=== PATIENT | female | born 1955 | race Caucasian/White ===

== ENCOUNTER → 2020-02-08 10:46 | Outpatient (BNVA) | payer OTHER, SELFPAY | PROVIDERS: PCP Internal Medicine; Referring Provider Internal Medicine; Visit Provider Internal Medicine | DX: Z76.89 Persons encountering health services in other specified circumstances (principal) ==

== ENCOUNTER → 2020-06-13 09:39 | Outpatient (BNVA) | payer OTHER, SELFPAY | PROVIDERS: PCP Internal Medicine; Visit Provider Internal Medicine | DX: J44.9 Chronic obstructive pulmonary disease, unspecified (principal); R09.02 Hypoxemia; Z87.891 Personal history of nicotine dependence; Z79.899 Other long term (current) drug therapy | CPT/HCPCS: 99212 ==

== ENCOUNTER 2020-09-05 09:38 | Outpatient (REF) | payer MEDICARE, SELFPAY ==
[2020-09-05 10:25] LABS: MANUAL DIFF FLAG NO
[2020-09-05 10:30] LABS: Basophils Percent Auto 0.4 % (0-2); Eosinophils Absolute Auto 0.1 X10*3/uL (0.0-0.4); Eosinophils Percent Auto 1.1 % (0-4); Hematocrit 41.6 % (37-47); Hemoglobin 12.8 g/dl (12.0-16.0); Imm Gran Abs Auto 0.02 X10*3/uL (0.00-0.03); Imm Gran Pct Auto 0.2 % (0.0-0.4); Lymphocytes Absolute Auto 1.2 X10*3/uL (1.2-4.9); Mean Corpuscular HGB Conc 30.8 g/dl (31.0-35.0); Mean Corpuscular Volume 94.1 fL (80-98); Mean Platelet Volume 8.8 fL (9.4-12.3); Monocytes Absolute Auto 0.4 X10*3/uL (0.1-1.2); Neutrophils Absolute Auto 6.7 X10*3/uL (2.0-8.3); Neutrophils Percent Auto 79.3 % (45-73); Platelet Count 269 X10*3/uL (160-400); Red Blood Count 4.42 X10*6/uL (4.20-5.50); Red Cell Distribution Width 12.5 % (11.0-16.0); White Blood Count 8.4 X10*3/uL (4.8-10.8)
[2020-09-05 11:33] LABS: Glucose Urine UA NEG (NEG); Leukocyte Esterase Urine NEG (NEG); Nitrite Urine NEG (NEG); Specific Gravity - Urine >= 1.030 (1.005-1.025); Urine Blood NEG (NEG); Urine Ketones NEG (NEG); Urine Protein NEG (NEG-TRACE)
[2020-09-05 11:38] LABS: Appearance Urine HAZY; Color Urine YELLOW
[2020-09-05 11:38] LABS: Folate 7.3 ng/mL (> or = 4.0); Vitamin B12 410 pg/mL (200-900)
[2020-09-05 13:32] LABS: Alanine Aminotransferase 19 U/L (0-31); Albumin Level 4.6 g/dL (3.5-5.0); Alkaline Phosphatase 87 U/L (39-117); Anion Gap 13 (12-20); Aspartate Amino Transferase 19 U/L (5-31); Bilirubin Total 0.4 mg/dL (0.0-1.0); Blood Urea Nitrogen 13 mg/dL (9-16); Calcium 10.2 mg/dL (8.4-10.2); Carbon Dioxide 33 mmol/L (22-29); Chloride 100 mmol/L (96-108); Cholesterol 363 mg/dL; Estimated Glomerular Filt Rate 47; Glucose Fasting 117 mg/dL (60-99); HDL Cholesterol 88 mg/dL; LDL Cholesterol Calculated 245 mg/dl; Potassium 4.6 mmol/L (3.3-5.1); Sodium 141 mmol/L (135-145); Total Protein 7.1 g/dL (6.5-8.0); Triglycerides 150 mg/dL
[2020-09-05 13:50] LABS: TSH reflex Free T4 0.98 uIU/mL (0.32-4.0)
== END 2020-09-05 09:39 | disposition home or self-care (01) ==
LOC: HO.LAB 09:38
PROVIDERS: PCP Internal Medicine; Visit Provider Internal Medicine
DX: J44.9 Chronic obstructive pulmonary disease, unspecified (principal); K21.9 Gastro-esophageal reflux disease without esophagitis; R41.3 Other amnesia; E78.00 Pure hypercholesterolemia, unspecified
CPT/HCPCS: 36415; 80053; 80061; 81003; 82607; 82746; 84443; 85025

== ENCOUNTER → 2020-10-15 10:04 | Outpatient (BNVA) | payer MEDICARE, MEDICAID, SELFPAY | PROVIDERS: PCP Internal Medicine; Visit Provider Internal Medicine | DX: R05 Cough (principal); Z79.52 Long term (current) use of systemic steroids; F17.200 Nicotine dependence, unspecified, uncomplicated; Z71.6 Tobacco abuse counseling; Z99.81 Dependence on supplemental oxygen | CPT/HCPCS: 99212 ==

== ENCOUNTER → 2021-02-20 10:38 | Outpatient (BNVA) | payer MEDICARE, MEDICAID, SELFPAY | PROVIDERS: PCP Internal Medicine; Visit Provider Internal Medicine | DX: J44.9 Chronic obstructive pulmonary disease, unspecified (principal); R09.02 Hypoxemia; F17.200 Nicotine dependence, unspecified, uncomplicated | CPT/HCPCS: 99212 ==

== ENCOUNTER 2021-05-03 21:51 | Emergency (ER) | payer MEDICARE, MEDICAID, SELFPAY ==
--- NOTE | ~2021-05-03 | XR_ITS ---
EXAMINATION: XR chest 1V CLINICAL INFORMATION: Reason for Exam weakness COMPARISON: Chest radiograph 10/07/2019 TECHNIQUE: One view of the chest XR/XR chest 1V FINDINGS/IMPRESSION: Emphysema with large lung volumes with flattening of the hemidiaphragms which can be seen in the setting of COPD. No pneumothorax. No pleural effusion. Normal cardiomediastinal silhouette. Multiple remote left rib fracture deformities.
--- NOTE | ~2021-05-03 | CT_ITS ---
EXAMINATION: CT HEAD WITHOUT CONTRAST CLINICAL INFORMATION: Confusion. COMPARISON: CT head dated from 07/26/2018. TECHNIQUE: Contiguous axial imaging was performed from the skull base to vertex without intravenous administration of contrast. This CT examination was performed using dose optimization techniques as appropriate, variously including the following: *Automated exposure control *Adjustment of mA and/or kV according to patient size (this includes techniques or standardized protocols for targeted exams where dose is matched to indication/reason for exam; i.e. extremities or head) *Use of iterative reconstruction technique DLP: 583 mGy-cm FINDINGS: There is no evidence of acute intracranial hemorrhage or edematous territorial infarction. A few foci of hypoattenuation in the periventricular and deep white matter are consistent with mild microangiopathy. [place]-white matter differentiation is preserved. Proportional prominence of the ventricles and sulcal spaces. No evidence for obstructive hydrocephalus. No abnormal mass effect or midline shift. No extra-axial fluid collections. No acute soft tissue or osseous abnormalities. The mastoid air cells and paranasal sinuses are clear. CT/CT head/brain wo con IMPRESSION: No evidence of acute intracranial hemorrhage or edematous territorial infarction.
[2021-05-03 22:09] VITALS: BP 138/66; BP 158/84; PULSE 75; PULSE 76; RESP 20; TEMP 36.8; O2SAT 100; O2SAT 94; BMI 19.2
--- NOTE | 2021-05-03 22:13 | ED.AMS ---
HPI - Altered Mental Status General Chief Complaint: Dyspnea Stated Complaint: CONFUSION Time Seen by Provider: 05/03/21 22:04 Source: patient Mode of arrival: EMS Limitations: no limitations History of Present Illness HPI narrative: notes from 03/12 pulmonology state that the patient was c/o confusion during that visit as well. complaint: other (my daughter wants me to get checked out she states I was combative - EMS told RN that patient was confused x 2 weeks) Onset (ago): week(s) (2) Timing confirmed by: family member Consistency of symptoms: unknown Context: other (patient is not confused here and states she feels fine and not sure why daughter called) Associated symptoms: denies other symptoms Treatments prior to arrival: oxygen (on her baseline home O2) Related Data Home Medications Medication Instructions Recorded Confirmed albuterol sulfate 90 mcg/actuation 2 puff INHALATION Q6H PRN g 02/28/20 09/27/20 aerosol inhaler nystatin 100,000 unit/mL oral 10 ml PO BID PRN ml 02/20/21 suspension Previous Rx's Medication Instructions Recorded omeprazole 20 mg capsule,delayed 20 mg PO DAILY 90 Days #90 cap 03/31/20 release paroxetine HCl 30 mg tablet 60 mg PO DAILY #180 tab 12/01/20 atorvastatin 20 mg tablet 20 mg PO BEDTIME #90 tab 01/25/21 umeclidinium 62.5 mcg-vilanterol 1 ea PO DAILY #60 ea 01/25/21 25 mcg/actuation powdr for inhalation (Anoro Ellipta) ipratropium 0.5 mg-albuterol 3 mg 3 ml INHALATION Q6-8H PRN #90 ml 04/01/21 (2.5 mg base)/3 mL nebulization soln lorazepam 1 mg tablet 1 mg PO BID PRN 30 Days #60 tab 05/02/21 prednisone 5 mg tablet 5 mg PO DAILY #30 tab 05/02/21 tramadol 50 mg tablet 50 mg PO TID PRN 30 Days #90 tab 05/02/21 cefuroxime axetil 500 mg tablet 500 mg PO BID 7 Days #14 tab 05/04/21 Allergies Allergy/AdvReac Type Severity Reaction Status Date / Time No Known Allergies Allergy Intermediate UNKNOWN Verified 02/20/21 11:05 [NO KNOWN ALLERGIES] Review of Systems Review of Systems: Constitutional :No Fever, No Chills, No Fatigue, No Malaise ENT/Mouth : No sore throat, No Rhinorrhea Eyes: No Eye Pain, No Swelling, No Redness Cardiovascular : No Chest Pain, No SOB, No Edema, No Palpitations Respiratory : pos Cough - no change from baseline, No Sputum, No Wheezing Gastrointestinal : No Nausea, No Vomiting, No Diarrhea, No Constipation, No abdominal Pain, No Hematochezia, No Melena Genitourinary : No Dysuria, No Urinary Frequency, No Hematuria, Musculoskeletal : No joint pain, No Myalgias, No Joint Swelling Skin : No Skin Lesions, No rash Neuro : No Weakness, No Numbness, No Dizziness, No Headache Psych : No Anxiety/Panic, No Depression Heme/Lymph: No Bruising, No Bleeding,No Lymphadenopathy Endocrine : No Polyuria, No Polydipsia All other systems reviewed and are negative [facility] Past Medical History Attestation statement: The following information was validated with the patient. Medical History Anxiety COPD (chronic obstructive pulmonary disease) Elevated blood pressure reading GERD (gastroesophageal reflux disease) Hypoxemia Impaired fasting glucose Left shoulder pain Lumbar degenerative disc disease Memory impairment Pure hypercholesterolemia Smoker Vitamin D deficiency Surgical History No pertinent past surgical history Family History Family History Father CVD (cardiovascular disease) Mother Medical history unknown Other Substance abuse Social History Social History Housing: Apartment Alcohol intake: never Patient Tobacco Use Status: Current everyday Tobacco user Cigarettes Per Day: 1 Advance Directives: No Advance Directives Information Provided: No service: No Current occupational status: retired and disabled Physical Exam Vital Signs: Vital Signs: Last Vital Signs Temp 97.6 F 05/04/21 02:00 Pulse 84 05/04/21 06:17 Resp 16 05/04/21 06:17 BP 199/122 H 05/04/21 06:17 Pulse Ox 100 05/04/21 06:17 Oxygen Flow Rate 2 05/03/21 22:09 BMI result Body Mass Index 19.2 Appearance: Alert. Oriented X3. No acute distress. Eyes: Pupils equal, round and reactive to light. ENT: Pharynx normal. Neck: Normal inspection. Neck supple. CVS: Normal heart rate and rhythm. Pulses normal. Respiratory: No respiratory distress. Breath sounds diminished throughout Abdomen: Soft and non-tender. Skin: Skin warm and dry. Normal skin color. Normal skin turgor. Extremities: No lower extremity edema. No calf ttp Neuro: Oriented X 3. No motor deficit. No sensory deficit. Course Course Course Narrative: HCO3 up but VBG is at baseline and pH normal mild UTI no fevers, no confusion no back pain no WBC count can be managed as outpatient unable to get a hold of daughter, patient confused - hx of same documented in prior notes, given PRN ativan that she takes at home for anxiety, she is upset we cannot get a hold of her daughter. signed out pending ability to reach family MDM - Altered Mental Status MDM Narrative Medical decision making narrative: 65 yo female with hx of anxiety, GERD, COPD on 2L NC at home, HLD, here as her daughter reported to EMS she has been more confused x 2 weeks the patient right now is alert and oriented x 2. She is not hypoxic. She denies infectious symptoms to me. At this time will obtain labs, CXR for pneumonia, UA for UTI, CT head for stroke/ICH has no focal deficits. Dispo per results and findings. Lab Data Result diagrams: 05/03/21 22:51 05/03/21 22:51 Labs: Lab Results 05/03/21 05/03/21 05/03/21 Range/Units 22:51 22:51 22:51 WBC 6.6 (4.8-10.8) X10*3/uL RBC 4.13 L (4.20-5.50) X10*6/uL Hgb 12.2 (12.0-16.0) g/dl Hct 40.4 (37.0-47.0) % MCV 97.8 (80.0-98.0) fL MCH 29.5 (27.0-33.0) pg MCHC 30.2 L (31.0-35.0) g/dl RDW 12.5 (11.0-16.0) % Plt Count 234 (160-400) X10*3/uL MPV 9.3 L (9.4-12.3) fL Immature Gran % (Auto) 0.2 (0.0-0.4) % Neut % (Auto) 77.0 H (45-73) % Lymph % (Auto) 12.4 L (20-40) % [place] % (Auto) 9.4 (2-11) % Eos % (Auto) 0.5 (0-4) % Baso % (Auto) 0.5 (0-2) % Lymph # (Auto) 0.8 L (1.2-4.9) X10*3/uL [place] # (Auto) 0.6 (0.1-1.2) X10*3/uL Eos # (Auto) 0.0 (0.0-0.4) X10*3/uL Baso # (Auto) 0.0 (0.0-0.2) X10*3/uL Abs Immat Gran (auto) 0.01 (0.00-0.03) X10*3/uL Absolute Neuts (auto) 5.1 (2.0-8.3) x10*3/uL Absolute Nucleated RBC 0.000 (0.0-0.012) X10*3/uL Nucleated RBC % (auto) 0.0 (0.0-0.2) /100WBC VBG pH (7.32-7.43) VBG pCO2 mmHg VBG pO2 mmHg VBG HCO3 (22-26) mmol/L VBG O2 Saturation % VBG Base Excess mmol/L Sodium 142 (135-145) mmol/L Potassium 3.4 D (3.3-5.1) mmol/L Chloride 92 L (96-108) mmol/L Carbon Dioxide 41 H* D (22-29) mmol/L Anion Gap 12 (12-20) BUN 7 L (9-16) mg/dL Creatinine 0.92 (0.5-1.4) mg/dL Estim Creat Clear Calc 45.8 Estimated GFR > 60 Random Glucose 120 H (60-115) mg/dL Calcium 9.5 D (8.4-10.2) mg/dL Magnesium 1.8 (1.6-2.6) mg/dL Total Bilirubin 0.2 (0.0-1.0) mg/dL Direct Bilirubin 0.2 (0.0-0.5) mg/dL AST 15 (5-31) U/L ALT < 6 (0-31) U/L Alkaline Phosphatase 69 D (39-117) U/L Troponin I High Sens (<3.5-17.0) ng/L C-Reactive Protein 0.07 (< or = 0.50) mg/dL Total Protein 6.1 L (6.5-8.0) g/dL Albumin 3.9 (3.5-5.0) g/dL Urine Color Urine Appearance Urine pH (5.0-8.0) Ur Specific [place] (1.005-1.025) Urine Protein (NEG-TRACE) MG/DL Urine Glucose (UA) (NEG) MG/DL Urine Ketones (NEG) MG/DL Urine Blood (NEG) Urine Nitrite (NEG) Ur Leukocyte Esterase (NEG) Urine RBC (0) /HPF Urine WBC (0-4) /HPF Ur Squamous Epith Cells /LPF Ur Renal Epithelial Cell /LPF Urine Bacteria /LPF Urine Mucus /LPF COVID-19 (GINNY) Negative (Negative) COVID-19 Clin Com See Note 05/03/21 05/03/21 05/04/21 Range/Units 22:51 22:55 00:00 WBC (4.8-10.8) X10*3/uL RBC (4.20-5.50) X10*6/uL Hgb (12.0-16.0) g/dl Hct (37.0-47.0) % MCV (80.0-98.0) fL MCH (27.0-33.0) pg MCHC (31.0-35.0) g/dl RDW (11.0-16.0) % Plt Count (160-400) X10*3/uL MPV (9.4-12.3) fL Immature Gran % (Auto) (0.0-0.4) % Neut % (Auto) (45-73) % Lymph % (Auto) (20-40) % [place] % (Auto) (2-11) % Eos % (Auto) (0-4) % Baso % (Auto) (0-2) % Lymph # (Auto) (1.2-4.9) X10*3/uL [place] # (Auto) (0.1-1.2) X10*3/uL Eos # (Auto) (0.0-0.4) X10*3/uL Baso # (Auto) (0.0-0.2) X10*3/uL Abs Immat Gran (auto) (0.00-0.03) X10*3/uL Absolute Neuts (auto) (2.0-8.3) x10*3/uL Absolute Nucleated RBC (0.0-0.012) X10*3/uL Nucleated RBC % (auto) (0.0-0.2) /100WBC VBG pH 7.42 (7.32-7.43) VBG pCO2 77 mmHg VBG pO2 64 mmHg VBG HCO3 50 H (22-26) mmol/L VBG O2 Saturation 91.0 % VBG Base Excess 21.4 mmol/L Sodium (135-145) mmol/L Potassium (3.3-5.1) mmol/L Chloride (96-108) mmol/L Carbon Dioxide (22-29) mmol/L Anion Gap (12-20) BUN (9-16) mg/dL Creatinine (0.5-1.4) mg/dL Estim Creat Clear Calc Estimated GFR Random Glucose (60-115) mg/dL Calcium (8.4-10.2) mg/dL Magnesium (1.6-2.6) mg/dL Total Bilirubin (0.0-1.0) mg/dL Direct Bilirubin (0.0-0.5) mg/dL AST (5-31) U/L ALT (0-31) U/L Alkaline Phosphatase (39-117) U/L Troponin I High Sens 7.2 (<3.5-17.0) ng/L C-Reactive Protein (< or = 0.50) mg/dL Total Protein (6.5-8.0) g/dL Albumin (3.5-5.0) g/dL Urine Color YELLOW Urine Appearance CLOUDY Urine pH 6.5 (5.0-8.0) Ur Specific [place] >= 1.030 H (1.005-1.025) Urine Protein TRACE (NEG-TRACE) MG/DL Urine Glucose (UA) NEG (NEG) MG/DL Urine Ketones NEG (NEG) MG/DL Urine Blood NEG (NEG) Urine Nitrite NEG (NEG) Ur Leukocyte Esterase 1+ H (NEG) Urine RBC 0-2 (0) /HPF Urine WBC 10-14 H (0-4) /HPF Ur Squamous Epith Cells 3+ /LPF Ur Renal Epithelial Cell 2+ /LPF Urine Bacteria TRACE /LPF Urine Mucus 3+ /LPF COVID-19 ([facility]) (Negative) COVID-19 Clin Com ECG Data ECG #1: Attestation: I personally reviewed and interpreted this ECG as follows: ECG interpretation date: 05/03/21 ECG interpretation time: 22:57 Interpretation: Rate: 73 Rhythm: NSR [place]: rightward pulmonary P waves. Normal AYDE. Normal QRS complex. ST T wave : no GURDEEP, inverted anterior leads, flat t waves diffusely qTC: normal prior studies: no sig change august 2019 The study has been interpreted contemporaneously by me. . Discharge Plan Discharge Clinical Impression: Acute UTI Patient Disposition: Still a Patient Instructions: Urinary Tract Infection in Women (ED) Additional Instructions: return to ED for any worsening symptoms or concerns head CT and CXR normal Prescriptions: New cefuroxime axetil 500 mg tablet 500 mg PO BID 7 Days Qty: 14 0RF No Action omeprazole 20 mg capsule,delayed release(DR/EC) 20 mg PO DAILY 90 Days Qty: 90 12RF paroxetine HCl 30 mg tablet 60 mg PO DAILY Qty: 180 1RF atorvastatin 20 mg tablet 20 mg PO BEDTIME Qty: 90 1RF Anoro Ellipta 62.5-25 mcg/actuation blister with device 1 ea PO DAILY Qty: 60 3RF ipratropium-albuterol 0.5 mg-3 mg(2.5 mg base)/3 mL solution for nebulization 3 ml inhalation Q6-8H PRN (Reason: shortness of breath or wheezing) Qty: 90 3RF prednisone 5 mg tablet 5 mg PO DAILY Qty: 30 0RF lorazepam 1 mg tablet 1 mg PO BID PRN (Reason: anxiety) 30 Days Qty: 60 0RF tramadol 50 mg tablet 50 mg PO TID PRN (Reason: pain) 30 Days Qty: 90 0RF albuterol sulfate 90 mcg/actuation HFA aerosol inhaler 2 puff inhalation Q6H PRN (Reason: shortness of breath or wheezing) 0RF nystatin 100,000 unit/mL suspension 10 ml PO BID PRN0RF Referrals: Physician,Unknown J [Primary Care Provider] - 3 days (PCP if not better)
--- NOTE | 2021-05-03 22:27 | ECG_ITS ---
Test Reason : SOB Blood Pressure : / mmHG Vent. Rate : 073 BPM Atrial Rate : 073 BPM P-R Int : 098 ms QRS Dur : 074 ms QT Int : 326 ms P-R-T Axes : 064 260 -84 degrees QTc Int : 359 ms Sinus rhythm with short SD with Premature atrial complexes Right superior axis deviation Anteroseptal infarct (cited on or before 26-AUG-2019) Abnormal ECG When compared with ECG of 07-OCT-2019 22:52, Significant changes have occurred Referred By: Kely Curtis Electronically Signed By:Сергей Colon
[2021-05-03 22:59] LABS: MANUAL DIFF FLAG NO
[2021-05-03 23:00] LABS: Basophils Percent Auto 0.5 % (0-2); Eosinophils Percent Auto 0.5 % (0-4); Hematocrit 40.4 % (37.0-47.0); Hemoglobin 12.2 g/dl (12.0-16.0); Imm Gran Abs Auto 0.01 X10*3/uL (0.00-0.03); Imm Gran Pct Auto 0.2 % (0.0-0.4); Lymphocytes Absolute Auto 0.8 X10*3/uL (1.2-4.9); Lymphocytes Percent Auto 12.4 % (20-40); Mean Corpuscular HGB Conc 30.2 g/dl (31.0-35.0); Mean Corpuscular Hemoglobin 29.5 pg (27.0-33.0); Mean Corpuscular Volume 97.8 fL (80.0-98.0); Mean Platelet Volume 9.3 fL (9.4-12.3); Monocytes Absolute Auto 0.6 X10*3/uL (0.1-1.2); Monocytes Percent Auto 9.4 % (2-11); Neutrophils Absolute Auto 5.1 x10*3/uL (2.0-8.3); Platelet Count 234 X10*3/uL (160-400); Red Blood Count 4.13 X10*6/uL (4.20-5.50); Red Cell Distribution Width 12.5 % (11.0-16.0); White Blood Count 6.6 X10*3/uL (4.8-10.8)
[2021-05-03 23:02] LABS: VBG Base Excess 21.4 mmol/L; VBG HCO3 50 mmol/L (22-26); VBG pCO2 77 mmHg; VBG pH 7.42 (7.32-7.43); VBG pO2 64 mmHg
[2021-05-03 23:04] LABS: Venous Blood Gas Refer to POC result
[2021-05-03 23:17] LABS: COVID-19 Test Negative (Negative)
[2021-05-03 23:22] LABS: Alanine Aminotransferase < 6 U/L (0-31); Albumin Level 3.9 g/dL (3.5-5.0); Alkaline Phosphatase 69 U/L (39-117); Anion Gap 12 (12-20); Aspartate Amino Transferase 15 U/L (5-31); Bilirubin Direct 0.2 mg/dL (0.0-0.5); Bilirubin Total 0.2 mg/dL (0.0-1.0); Blood Urea Nitrogen 7 mg/dL (9-16); C Reactive Protein 0.07 mg/dL (< or = 0.50); Calcium 9.5 mg/dL (8.4-10.2); Carbon Dioxide 41 mmol/L (22-29); Chloride 92 mmol/L (96-108); Creatinine Clr Calc Pharmacy 45.8; Estimated Glomerular Filt Rate > 60; Glucose Random 120 mg/dL (60-115); Magnesium 1.8 mg/dL (1.6-2.6); Potassium 3.4 mmol/L (3.3-5.1); Sodium 142 mmol/L (135-145); Total Protein 6.1 g/dL (6.5-8.0); Troponin-I High Sensitivity 7.2 ng/L (<3.5-17.0)
[2021-05-03 23:47] VITALS: BP 139/77; PULSE 86; RESP 18; TEMP 36.4; O2SAT 100
[2021-05-04 00:08] LABS: Appearance Urine CLOUDY; Color Urine YELLOW; Glucose Urine UA NEG (NEG); Leukocyte Esterase Urine 1+ (NEG); Nitrite Urine NEG (NEG); PH 6.5 (5.0-8.0); Specific Gravity - Urine >= 1.030 (1.005-1.025); UACC Culture Trigger YES; Urine Blood NEG (NEG); Urine Ketones NEG (NEG); Urine Protein TRACE MG/DL (NEG-TRACE)
[2021-05-04 00:18] LABS: Bacteria Urine TRACE /LPF; Mucus Urine 3+ /LPF; RBC Urine 0-2 /HPF (0); Renal Epithelial Cells Urine 2+ /LPF; Squamous Epithelial Cell Urine 3+ /LPF
[2021-05-04 01:01] VITALS: BP 141/67; PULSE 69; RESP 16; O2SAT 100
[2021-05-04 02:00] VITALS: BP 148/84; PULSE 79; RESP 16; TEMP 36.4; O2SAT 97
[2021-05-04] MEDS: LORazepam 1 MG TABLET PO (03:35)
[2021-05-04 06:00] VITALS: RESP 16
[2021-05-04 06:10] VITALS: BP 196/121; PULSE 85; RESP 16; O2SAT 99
[2021-05-04 06:17] VITALS: BP 199/122; PULSE 84; RESP 16; O2SAT 100
--- NOTE | 2021-05-04 08:13 | PC.NURSE ---
CALL TO DR ESPINOZA. MARIBELL WILL BE IN TO PICK PT UP.
== END 2021-05-04 10:12 | disposition home or self-care (01) ==
PROVIDERS: Emergency Provider Emergency Medicine
DX: N39.0 Urinary tract infection, site not specified (principal); R41.0 Disorientation, unspecified; Z20.822 Contact with and (suspected) exposure to COVID-19; J44.9 Chronic obstructive pulmonary disease, unspecified; F17.200 Nicotine dependence, unspecified, uncomplicated; Z99.81 Dependence on supplemental oxygen
CPT/HCPCS: 36415; 70450; 71045; 80048; 80076; 81001; 82803; 83735; 84484; 85025; 86140; 87086; 87635; 93005; 99284